=== PATIENT | male | born 1935 | race Two or more races ===

== ENCOUNTER 2022-09-03 15:14 | Emergency (ER) | payer MEDICARE, OTHER ==
[~2022-09-03] VITALS: Ht 177.8 cm; Wt 64.4 kg
--- NOTE | 2022-09-03 15:42 | NUR ---
PT BIBRA FROM THE STREETS PRESENTS W/ LACERATION TO R EYEBROW AREA S/P TRIP AND FALL WHILE WALKING W/ . DENIES LOC. NO OTHER COMPLAINT ENDORSED. PT AWAITING MD BRENNAN.
--- NOTE | 2022-09-03 15:54 | NUR ---
DR MEDLE AT BEDSIDE FOR EVAL.
[2022-09-03] MEDS ORDERED: ACETAMINOPHEN ES 500 MG TABLET PO ONE (16:00)
[2022-09-03] MEDS ORDERED: ACETAMINOPHEN ES 500 MG TABLET ONE (16:12)
[2022-09-03] MEDS ORDERED: LIDOCAINE 1%-EPI 1:100,000 20 ML VIAL ONE (17:29)
[2022-09-03] MEDS ORDERED: LIDOCAINE HCL/PF 1% 30 ML VIAL TP ONE (17:30)
[2022-09-03 17:35] LABS: BASOPHILS % (AUTO) 0.3 % (0.0-2.0); EOSINOPHILS % (AUTO) 0.3 % (0.0-6.0); HEMATOCRIT 40 % (39-51); HEMOGLOBIN 13.2 g/dL (13.5-17.5); LYMPHOCYTES # (AUTO) 0.6 K/uL (0.8-4.8); LYMPHOCYTES % (AUTO) 11.5 % (20.0-44.0); MEAN CORPUSCULAR HGB CONC 33 g/dl (31.0-36.0); MEAN CORPUSCULAR VOLUME 93 fL (80-96); MONOCYTES # (AUTO) 0.4 K/uL (0.1-1.30); MONOCYTES % (AUTO) 6.9 % (2.0-12.0); NEUTROPHILS # (AUTO) 4.2 K/uL (1.8-8.9); PLATELET COUNT (AUTO) 227 K/uL (150-450); RED BLOOD CELL COUNT(AUTO) 4.34 MIL/uL (4.5-6.0); WHITE BLOOD COUNT (AUTO) 5.1 K/uL (4.3-11.0)
[2022-09-03 18:04] LABS: CALCIUM, SERUM 9.2 mg/dL (8.5-10.1); CARBON DIOXIDE 27 mmol/L (21-32); CHLORIDE 106 mmol/L (98-107); CREATININE 1.3 mg/dL (0.6-1.3); GLUCOSE 104 mg/dL (74-106); POTASSIUM 4.5 mmol/L (3.5-5.1); SODIUM SERUM 141 mmol/L (136-145); UREA NITROGEN, BLOOD 30 mg/dL (7-18)
[2022-09-03 18:09] LABS: ALANINE AMINOTRANSFERASE 17 U/L (12-78); ALBUMIN 3.5 g/dL (3.4-5.0); ALKALINE PHOSPHATASE 62 U/L (46-116); ASPARTATE AMINOTRANSFERASE 24 U/L (15-37); BILIRUBIN,DIRECT 0.1 mg/dL (0.0-0.2); BILIRUBIN,TOTAL 0.4 mg/dL (0.2-1.0); TOTAL PROTEIN, SERUM 7.1 g/dL (6.4-8.2)
--- NOTE | 2022-09-03 19:42 | NUR ---
Patient discharged to home in stable condition. Written and verbal after care instructions given. Patient verbalizes understanding of instruction.
[2022-09-03 20:09] VITALS: BP 117/71
== END 2022-09-03 19:42 | disposition home or self-care (01) ==
LOC: ER 16:19 → EDBD 16:19 → ER 19:42
DX: S01.111A Laceration without foreign body of right eyelid and periocular area, initial encounter (principal); R51.9 Headache, unspecified; R41.82 Altered mental status, unspecified; M54.2 Cervicalgia; I10 Essential (primary) hypertension; W01.198A Fall on same level from slipping, tripping and stumbling with subsequent striking against other object, initial encounter; Y93.89 Activity, other specified; Y92.89 Other specified places as the place of occurrence of the external cause; Y99.8 Other external cause status
CPT/HCPCS: 13132; 99285; 72125; 71045; 13133 ×2; 93005; 70450; 70486; 85025; 80048; 80076; 36415; 84484; 85730; J3490 ×2; A6403